=== PATIENT | male | born 2005 | race Caucasian/White ===

== ENCOUNTER 2024-09-25 12:48 | Emergency (ER) | payer MEDICAID ==
[2024-09-25] MEDS: Diphtheria,Pertussis(Acell),Tetanus Vaccine 0.5 ML Syringe IM ONE (13:45)
[2024-09-25 16:29] VITALS: BP 117/78; PULSE 86
== END 2024-09-25 13:50 | disposition home or self-care (01) ==
LOC: LB.ED 12:48
DX: S61.452A Open bite of left hand, initial encounter (principal); Z23 Encounter for immunization; W54.0XXA Bitten by dog, initial encounter; Y93.89 Activity, other specified
CPT/HCPCS: 90471; 90715; 99283-25